=== PATIENT | male | born 1960 | race Caucasian/White ===

== ENCOUNTER 2021-08-25 03:41 | Inpatient (IN) ==
--- NOTE | 2021-08-25 03:56 | DR.SOBA ---
HPI Time Seen Time Seen by Provider: 08/25/21 03:51 HPI Comment HPI Comment: PATIENT IS 61YR OLD MALE WITH HISTORY OF CHRONIC BACK AND NECK PAIN IN ER VIA EMS WITH FEVER, COUGH, CONGESTION AND INCREASING SOB TIMES 4 DAYS. PATIENT IS HAVING PRODUCTIVE COUGH WITH YELLOW SPUTUM. HE IS HAVING SHARP 9/10 PAIN BELOW RIGHT BREAST. HE IS ON CHRONIC PAIN MANAGEMENT FOR CHRONIC LOWER BACK AND NECK. TAKES OXYCONTIN. PATIENT IS ON NO OTHER MEDICATIONS. BP IS ELEVATED IN ER AND PATIENT HAVE SWELLING TO HIS LOWER EXTREMITIS. Complaints Chief Complaint Doctors Comments: INCREASING SOB, COUGH CONGESTION AND LOWGRADE FEVER AND RIGHT SIDE CHEST PAIN BELOW RT BREAST TIMES 4 DAYS. COVID-19 Coronavirus risk:travel/contact w/high risk person: No Has patient experienced Coronavirus symptoms: No Reviewed Nurses Notes Reviewed: Yes Source History Provided: Patient Mode of Arrival Mode of Arrival: Wheelchair Duration Duration: Days Context Onset:: At Rest PE Risk Factors:: Immobilization History of:: COPD Prehospital Care:: O2 Modifying Factors Worsens:: Exertion Improves:: Rest Associated Signs and Symptoms Associated Signs and Symptoms: Fever, Wheeze, Cough, Nasal Congestion and Leg Swelling If Chest Pain Quality: Sharp Location: Right Lower Chest If Cough Cough: Productive and Yellow Other History Other History: CHRONIC LOWER BACK AND NECK PAIN. ROS Review of Systems Constitutional: See HPI, Fever, Weakness and Fatigue Eyes: No Symptoms Reported and See HPI; negative Blurred Vision and Diplopia ENTM: No Symptoms Reported, See HPI, Nose Discharge and Nose Congestion Respiratoy: No Symptoms Reported, See HPI, Productive Cough, Short of Breath and Wheezing Cardiovascular: See HPI, Chest Pain, Edema and Palpitations Gastrointestinal/Abdominal: No Symptoms Reported, See HPI and Nausea; negative Abdominal Pain and Diarrhea Genitourinary: No Symptoms Reported and See HPI Neurological: No Symptoms Reported, See HPI, Headache and Weakness Musculoskeletal: No Symptoms Reported, See HPI and Back Pain (LOWER BACK PAIN, CHRONIC.) Integumentary: No Symptoms Reported, See HPI and Other (LOWER EXTREMITY EDEMA.) Hematologic/Lymphatic: No Symptoms Reported, See HPI and Easy Bruising Endocrine: No Symptoms Reported, See HPI and Increased Thirst; negative Increased Urine Psychiatric: No Symptoms Reported and See HPI All Other Systems: Reviewed and Negative PE Vital Signs Vitals: Temperature 99.1 F Pulse Rate 98 Respiratory Rate 19 Blood Pressure 180/86 O2 Sat by Pulse Oximetry 89 General Limitations: No Limitations General Appearance: Alert and In Distress Head Head Exam: Normal Inspection and Atraumatic Eyes Eye exam: Normal Appearance and PERRL; negative Scleral Icterus and Conjunctival Injection ENT ENT Exam: Normal Exam; negative Normal Oropharynx, Normal External Ear Exam and TM's Normal Bilaterally Neck Neck Exam: Normal Inspection and Trachea Midline; negative Tenderness Chest Chest Inspection: Normal Inspection, Symmetric Chest Wall Rise and Tenderness Respiratory Respiratory Exam: Normal Lung Sounds Bilat, Accessory Muscle Use and Respiratory Distress; negative Chest Wall Tenderness (RT CHEST WALL TENDERNESS UNDER RT BREAST.) Respiratory Exam: Bilateral: Clear to Auscultation Cardiovascular Cardiovascular Exam: Regular Rate, Normal Rhythm, Normal Heart Sounds and +S3; negative Systolic Murmur and Diastolic Murmur Abdominal Exam Abdominal Exam: Normal Inspection, Normal Bowel Sounds and Soft; negative Tenderness Extremities Extremities Exam: Normal Inspection and Edema (BILATERAL EDEMA 2+) Back Back Exam: Paraspinal Tenderness Neurologic Neurological Exam: Alert and Oriented X3; negative Motor Sensory Deficit Psychiatric Psychiatric Exam: Normal Affect and Normal Mood Skin Skin Exam: Warm, Dry, Intact and Normal Color MDM Differential Diagnosis Differential Diagnosis: Bronchitis, CHF, COPD, Dysrhythmia, Hyponatremia, Mycardial Infarction, Pneumonia, Pneumothorax, Respiratory Insufficiency, Sinusitis and URI Differential Diagnosis Comment:: HYPERTENSION COURSE Treatment Treatment: SEE ORDERS DONE WHILS PATIENT WAS IN ER. LABS, EKG AND ABG AND XRAY REPORTS DISCUSSED WITH PATIENT. PATIENT GIVEN NEB TREATMENT, SOLUMEDROL IV AND IV LASIX WHILE PATIENT WAS IN ER. PATIENT WILL BE ADMITTED TO HOSPITAL. Reevaluation 1st: Improved (SOB IMPROVING.) Consultation Consultation Comments: DISCUSSED PATIENT WITH DR. GERMAN. SHE WILL ADMIT PATIENT. Education/Counseling Education/Counseling: Patient Educated On: Diagnosis ROR Labs Reviewed Laboratory Results Reviewed?: Yes Result Diagrams: 08/25/21 04:00 08/25/21 04:00 Laboratory: WBC 17.4 X10^3/uL (3.6-10.0) H 08/25/21 04:00 RBC 5.52 X10^6/uL (4.7-6.0) 08/25/21 04:00 Hgb 16.2 g/dL (13.5-18.0) 08/25/21 04:00 Hct 48.0 % (42.0-54.0) 08/25/21 04:00 MCV 86.9 fL (80.0-100.0) 08/25/21 04:00 MCH 29.3 pg (27.0-34.0) 08/25/21 04:00 MCHC 33.8 g/dL (33.0-35.0) 08/25/21 04:00 RDW 14.3 % (11.6-16.5) 08/25/21 04:00 Plt Count 295 X10^3/uL (150.0-450.0) 08/25/21 04:00 MPV 8.3 fL (7.4-11.0) 08/25/21 04:00 Neut % (Auto) 81.8 % (42.0-75.0) H 08/25/21 04:00 Lymph % (Auto) 7.5 % (21.0-51.0) L 08/25/21 04:00 [place] % (Auto) 10.4 % (0.0-13.0) 08/25/21 04:00 Eos % (Auto) 0.0 % (0.9-2.9) L 08/25/21 04:00 Baso % (Auto) 0.3 % (0.2-1.0) 08/25/21 04:00 Neut # (Auto) 14.3 x10^3/uL (2.2-4.8) H 08/25/21 04:00 Lymph # (Auto) 1.3 X10^3/uL (1.3-2.9) 08/25/21 04:00 [place] # (Auto) 1.8 x10^3/uL (0.3-0.8) H 08/25/21 04:00 Eos # (Auto) 0.0 x10^3/uL (0.0-0.2) 08/25/21 04:00 Baso # (Auto) 0.1 X10^3/uL (0.0-0.1) 08/25/21 04:00 Absolute Nucleated RBC 0.0 /100WBC 08/25/21 04:00 Sample Site Rrad 08/25/21 04:15 ABG pH 7.410 (7.35-7.45) 08/25/21 04:15 ABG pCO2 41.0 mmHg (35.0-45.0) 08/25/21 04:15 ABG pO2 46.0 mmHg (80.0-100.0) L* 08/25/21 04:15 ABG HCO3 26.0 mmol/L (22-26) 08/25/21 04:15 ABG O2 Saturation 82.0 % (90-100) L* 08/25/21 04:15 ABG Base Excess 1.2 mmol/L (-2.0-2.0) 08/25/21 04:15 Jignesh Test Pos 08/25/21 04:15 A-a Gradient 52.0 mmHg 08/25/21 04:15 FiO2 21.0 08/25/21 04:15 Blood Gas Comments Arnold abg well-mtf 08/25/21 04:15 Sodium 140 mmol/L (136-145) 08/25/21 04:00 Corrected Sodium 140 mmol/L (136-145) 08/25/21 04:00 Potassium 3.5 mmol/L (3.5-5.1) 08/25/21 04:00 Chloride 105 mmol/L (98-107) 08/25/21 04:00 Carbon Dioxide 26.2 mmol/L (21-32) 08/25/21 04:00 BUN 19 mg/dL (7-18) H 08/25/21 04:00 Creatinine 1.43 mg/dL (0.70-1.30) H 08/25/21 04:00 Est GFR (MDRD) Af Amer > 60 (>60) 08/25/21 04:00 Est GFR (MDRD) Non-Af 53 (>60) L 08/25/21 04:00 Glucose 113 mg/dL (65-99) H 08/25/21 04:00 Calcium 8.9 mg/dL (8.5-10.1) 08/25/21 04:00 Corrected Calcium 9.6 mg/dL (8.5-10.1) 08/25/21 04:00 Total Bilirubin 1.00 mg/dL (0.2-1.0) 08/25/21 04:00 AST 11 Units/L (15-37) L 08/25/21 04:00 ALT 19 Units/L (12-78) 08/25/21 04:00 Alkaline Phosphatase 90 Units/L (46-116) 08/25/21 04:00 Creatine Kinase 41 Units/L (39-308) 08/25/21 04:00 CK-MB (CK-2) < 1.0 ng/mL (0-4.0) 08/25/21 04:00 CK/CKMB % Calc 2.4 % (<4) 08/25/21 04:00 Troponin I High Sens 13.0 ng/L (4.0-60.0) 08/25/21 04:00 B-Natriuretic Peptide 136 pg/mL (0-79) H 08/25/21 04:00 Total Protein 8.0 g/dL (6.4-8.2) 08/25/21 04:00 Albumin 3.1 g/dL (3.4-5.0) L 08/25/21 04:00 Globulin 4.9 g/dL (2.5-4.5) H 08/25/21 04:00 Albumin/Globulin Ratio 0.6 Ratio (1.1-2.1) L 08/25/21 04:00 SARS-CoV-2 (PCR) Negative (NEGATIVE) 08/25/21 04:04 Influenza Type A (PCR) Negative (NEGATIVE) 08/25/21 04:04 Influenza Type B (PCR) Negative (NEGATIVE) 08/25/21 04:04 RSV (PCR) Negative (NEGATIVE) 08/25/21 04:04 XRAY XRAY Interpreted by: Radiologist (REPORT NOTED.) and Self EKG Lancing: Normal Rhythm: ST Block: None Hypertrophy: None ST: Nonsp Opioid Opioid Risk Tool Age (Ponce box if 16-45): No Total: 0 Total Score Risk Category: Low Risk Copyright: [facility] predicting aberrant behaviors Diagnosis Discharge Problem: Acute respiratory distress, COPD with acute exacerbation, Hypoxia, Bronchitis, Chronic neck pain CHF (congestive heart failure) Qualifiers: Heart failure type: combined systolic and diastolic Heart failure chronicity: acute on chronic Qualified Code(s): I50.43 - Acute on chronic combined systolic (congestive) and diastolic (congestive) heart failure Chronic low back pain Qualifiers: Back pain laterality: unspecified Sciatica presence: with sciatica Sciatica laterality: bilateral sciatica Qualified Code(s): M54.41 - Lumbago with sciatica, right side Instructions Forms: Precautions for COVID19 [facility] Social Distancing
[2021-08-25 03:59] VITALS: BMI 36.3
--- NOTE | 2021-08-25 04:11 | RAD ---
PROCEDURE: Chest X-ray 1 View .HISTORY: Dyspnea and chest pain.TECHNIQUE: AP view .COMPARISON: None .TECHNICAL QUALITY: Satisfactory .FINDINGS:Normal size heart .Mediastinum and hilar regions show no masses or lymphadenopathy .Normal central vascularity .Some atelectasis lung bases. No definite consolidation, pleural fluid, or masses.No acute bony abnormality .IMPRESSION:1. Bibasilar atelectasis.2. No other acute change identified.Electronically signed by: Harsh Reddy (Aug 25, 2021 04:09:55)
[2021-08-25 04:15] LABS: BASOPHILS # (AUTO) 0.1 X10^3/uL (0.0-0.1); BASOPHILS % (AUTO) 0.3 % (0.2-1.0); HEMOGLOBIN 16.2 g/dL (13.5-18.0); LYMPHOCYTES # (AUTO) 1.3 X10^3/uL (1.3-2.9); LYMPHOCYTES % (AUTO) 7.5 % (21.0-51.0); MEAN CORPUSCULAR HEMOGLOBIN 29.3 pg (27.0-34.0); MEAN CORPUSCULAR HGB CONC 33.8 g/dL (33.0-35.0); MEAN CORPUSCULAR VOLUME 86.9 fL (80.0-100.0); MEAN PLATELET VOLUME 8.3 fL (7.4-11.0); MONOCYTES # (AUTO) 1.8 x10^3/uL (0.3-0.8); MONOCYTES % (AUTO) 10.4 % (0.0-13.0); NEUTROPHILS # (AUTO) 14.3 x10^3/uL (2.2-4.8); NEUTROPHILS % (AUTO) 81.8 % (42.0-75.0); RED BLOOD COUNT 5.52 X10^6/uL (4.7-6.0); RED CELL DISTRIBUTION WIDTH 14.3 % (11.6-16.5); WHITE BLOOD COUNT 17.4 X10^3/uL (3.6-10.0)
[2021-08-25 04:17] LABS: ABG BASE EXCESS 1.2 mmol/L (-2.0-2.0)
[2021-08-25 04:18] LABS: ABG ALLEN TEST POS
[2021-08-25] MEDS ORDERED: SOLU-Medrol 125 MG VIAL IVP ONE (04:26)
[2021-08-25] MEDS ORDERED: XOPENEX 1.25 MG/3 ML NEBULE NEB ONE ×2 (04:26→05:19)
[2021-08-25 04:36] LABS: ALANINE AMINOTRANSFERASE 19 Units/L (12-78); ALBUMIN 3.1 g/dL (3.4-5.0); ALKALINE PHOSPHATASE 90 Units/L (46-116); ASPARTATE AMINO TRANSFERASE 11 Units/L (15-37); BLOOD UREA NITROGEN 19 mg/dL (7-18); CALCIUM 8.9 mg/dL (8.5-10.1); CARBON DIOXIDE 26.2 mmol/L (21-32); CHLORIDE 105 mmol/L (98-107); CKMB % 2.4 % (<4); COR CA(FOR HYPOALB) 9.6 mg/dL (8.5-10.1); COR NA(FOR HYPERGLY) 140 mmol/L (136-145); CREATINE KINASE 41 Units/L (39-308); CREATINE KINASE MB < 1.0 ng/mL (0-4.0); CREATININE 1.43 mg/dL (0.70-1.30); SODIUM 140 mmol/L (136-145); eGFR NON BLACK RACES 53 (>60)
[2021-08-25] MEDS ORDERED: SOLU-Medrol 125 MG VIAL ONE (05:13)
[2021-08-25] MEDS ORDERED: FORTAZ or TAZICEF VIAL INJ 1 G in NS 100 ML IV 100 ML IV ONE (05:35)
[2021-08-25] MEDS ORDERED: LASIX IVP ONE ×2 (05:51→06:13)
[2021-08-25] MEDS ORDERED: FORTAZ or TAZICEF VIAL INJ ONE (06:13)
[2021-08-25] MEDS ORDERED: NS 100 ML IV 100 ML ONE (06:18)
[2021-08-25 06:59] LABS: BILIRUBIN,URINE NEGATIVE (NEGATIVE); BLOOD/HEMOGLOBIN,URINE 1+ (NEGATIVE); GLUCOSE, URINE NEGATIVE (NEGATIVE); KETONES,URINE NEGATIVE (NEGATIVE); LEUKOCYTE ESTERASE ,URINE NEGATIVE (NEGATIVE); NITRITES,URINE NEGATIVE (NEGATIVE); PROTEIN,URINE 2+ (NEGATIVE); UROBILINOGEN,URINE NORMAL (NORMAL)
[2021-08-25 07:12] LABS: APPEARANCE,URINE SLIGHTLY HAZY (CLEAR); COLOR,URINE YELLOW (YELLOW)
[2021-08-25 07:13] LABS: BACTERIA,URINE TRACE /HPF (NEGATIVE); RBC,URINE 0-2 /HPF (0-3); SQUAMOUS EPITHELIAL CELL,UR FEW /HPF (NEGATIVE)
[2021-08-25] MEDS ORDERED: NS 1/2 500 ML IV 500 ML IV SCH (07:30)
[2021-08-25] MEDS ORDERED: NS 1/2 1,000 ML IV 1,000 ML IV SCH (07:30)
[2021-08-25] MEDS: FORTAZ or TAZICEF VIAL INJ 1 G in NS 100 ML IV 100 ML IV SCH ×3 (07:32→21:29)
[2021-08-25] MEDS ORDERED: SALINE 3% 15 ML NEB TX NEB ONE (08:06)
[2021-08-25] MEDS ORDERED: SALINE 3% 15 ML NEB TX ONE (08:11)
[2021-08-25] MEDS: XOPENEX 1.25 MG/3 ML NEBULE NEB SCH ×4 (08:35→21:40)
[2021-08-25] MEDS: NICOTINE PATCH TD SCH ×2 (08:50→09:09)
[2021-08-25] MEDS: ZITHROMAX INJ 500 MG VIAL 500 MG in D5W 250 ML IV 250 ML IV SCH (08:50)
[2021-08-25] MEDS: ROBITUSSIN DM PO SCH ×4 (08:51→21:29)
[2021-08-25] MEDS: VSL#3 PO SCH (08:51)
[2021-08-25] MEDS ORDERED: NS 1/2 1,000 ML IV 1,000 ML IV ONE (08:52)
[2021-08-25] MEDS: NS 1/2 1,000 ML IV 1,000 ML IV SCH ×2 (08:54→21:28)
[2021-08-25] MEDS: PATIENT'S HOME MEDICATION PO SCH ×3 (08:57→21:29)
--- NOTE | 2021-08-25 12:01 | DR.H&P ---
H&P History & Physical for Day of: H&P Date: 08/25/21 Chief Complaint Chief Complaint: cough, SOB Allergies Allergies Allergy/AdvReac Type Severity Reaction Status Date / Time morphine Allergy Verified 08/25/21 03:59 History of Present Illness History of Present Illness: Mr Corado is a 61y/o male with a PMH of chronic neck and back pain, tobacco user presented with worsening cough and dyspnea. He reports being sick for the past few days with productive cough with yellow/blood tinged sputum. He does not use O2 at home. Denies CAD or CHF. No hx of DM or HTN. Denied leg edema or recent wt gain. His only medication is pain medicine. In the ER, CXR showed bibasilar atelectasis. He is currently on 3L NC. He was admitted for COPD exacerbation and pneumonia. He also had elevated BNP, given one dose of lasix. Labs/imaging reviewed Plan: Wean O2 as tolerated to keep sats > 92%. Continue IV antibiotics and solumedrol. Monitor I/Os, daily weights. Order echo to evaluate LV function. Continue nebs and IS. Trend cardiac enzymes. Monitor AM labs/imaging. Past Surgical History Surgical History: Ortho Surgery Family History Family Medical History: Cancer, Heart Failure and Hypertension Social History Does patient currently use any type of tobacco product: Yes Have you used tobacco products in the last 12 months: Yes Type of Tobacco Use: Cigarettes How many years tobacco product used: 40 Does any household member use tobacco: No Alcohol Use: None Drug Use: None Prescription drug monitoring program results: PDMP reviewed and no concerns identified Medications Home Medications: morphine Allergy (Verified 08/25/21 03:59) CONTINUE taking the following medications oxycodone myristate [Xtampza ER] 36 mg PO BID 08/25/21 [History] Labs Result Diagrams: 08/25/21 04:00 08/25/21 04:00 Labs: Laboratory WBC 17.4 X10^3/uL (3.6-10.0) H 08/25/21 04:00 RBC 5.52 X10^6/uL (4.7-6.0) 08/25/21 04:00 Hgb 16.2 g/dL (13.5-18.0) 08/25/21 04:00 Hct 48.0 % (42.0-54.0) 08/25/21 04:00 MCV 86.9 fL (80.0-100.0) 08/25/21 04:00 MCH 29.3 pg (27.0-34.0) 08/25/21 04:00 MCHC 33.8 g/dL (33.0-35.0) 08/25/21 04:00 RDW 14.3 % (11.6-16.5) 08/25/21 04:00 Plt Count 295 X10^3/uL (150.0-450.0) 08/25/21 04:00 MPV 8.3 fL (7.4-11.0) 08/25/21 04:00 Neut % (Auto) 81.8 % (42.0-75.0) H 08/25/21 04:00 Lymph % (Auto) 7.5 % (21.0-51.0) L 08/25/21 04:00 [place] % (Auto) 10.4 % (0.0-13.0) 08/25/21 04:00 Eos % (Auto) 0.0 % (0.9-2.9) L 08/25/21 04:00 Baso % (Auto) 0.3 % (0.2-1.0) 08/25/21 04:00 Neut # (Auto) 14.3 x10^3/uL (2.2-4.8) H 08/25/21 04:00 Lymph # (Auto) 1.3 X10^3/uL (1.3-2.9) 08/25/21 04:00 [place] # (Auto) 1.8 x10^3/uL (0.3-0.8) H 08/25/21 04:00 Eos # (Auto) 0.0 x10^3/uL (0.0-0.2) 08/25/21 04:00 Baso # (Auto) 0.1 X10^3/uL (0.0-0.1) 08/25/21 04:00 Absolute Nucleated RBC 0.0 /100WBC 08/25/21 04:00 Sample Site Rrad 08/25/21 04:15 ABG pH 7.410 (7.35-7.45) 08/25/21 04:15 ABG pCO2 41.0 mmHg (35.0-45.0) 08/25/21 04:15 ABG pO2 46.0 mmHg (80.0-100.0) L* 08/25/21 04:15 ABG HCO3 26.0 mmol/L (22-26) 08/25/21 04:15 ABG O2 Saturation 82.0 % (90-100) L* 08/25/21 04:15 ABG Base Excess 1.2 mmol/L (-2.0-2.0) 08/25/21 04:15 Jignesh Test Pos 08/25/21 04:15 A-a Gradient 52.0 mmHg 08/25/21 04:15 FiO2 21.0 08/25/21 04:15 Blood Gas Comments Arnold abg well-mtf 08/25/21 04:15 Sodium 140 mmol/L (136-145) 08/25/21 04:00 Corrected Sodium 140 mmol/L (136-145) 08/25/21 04:00 Potassium 3.5 mmol/L (3.5-5.1) 08/25/21 04:00 Chloride 105 mmol/L (98-107) 08/25/21 04:00 Carbon Dioxide 26.2 mmol/L (21-32) 08/25/21 04:00 BUN 19 mg/dL (7-18) H 08/25/21 04:00 Creatinine 1.43 mg/dL (0.70-1.30) H 08/25/21 04:00 Est GFR (MDRD) Af Amer > 60 (>60) 08/25/21 04:00 Est GFR (MDRD) Non-Af 53 (>60) L 08/25/21 04:00 Glucose 113 mg/dL (65-99) H 08/25/21 04:00 Calcium 8.9 mg/dL (8.5-10.1) 08/25/21 04:00 Corrected Calcium 9.6 mg/dL (8.5-10.1) 08/25/21 04:00 Total Bilirubin 1.00 mg/dL (0.2-1.0) 08/25/21 04:00 AST 11 Units/L (15-37) L 08/25/21 04:00 ALT 19 Units/L (12-78) 08/25/21 04:00 Alkaline Phosphatase 90 Units/L (46-116) 08/25/21 04:00 Creatine Kinase 41 Units/L (39-308) 08/25/21 04:00 CK-MB (CK-2) < 1.0 ng/mL (0-4.0) 08/25/21 04:00 CK/CKMB % Calc 2.4 % (<4) 08/25/21 04:00 Troponin I High Sens 13.0 ng/L (4.0-60.0) 08/25/21 04:00 B-Natriuretic Peptide 136 pg/mL (0-79) H 08/25/21 04:00 Total Protein 8.0 g/dL (6.4-8.2) 08/25/21 04:00 Albumin 3.1 g/dL (3.4-5.0) L 08/25/21 04:00 Globulin 4.9 g/dL (2.5-4.5) H 08/25/21 04:00 Albumin/Globulin Ratio 0.6 Ratio (1.1-2.1) L 08/25/21 04:00 Specimen Type Clean catch urine 08/25/21 06:47 Urine Color Yellow (YELLOW) 08/25/21 06:47 Urine Appearance Slightly hazy (CLEAR) 08/25/21 06:47 Urine pH 5.0 (5.0 - 8.0) 08/25/21 06:47 Ur Specific [place] 1.020 (1.000-1.030) 08/25/21 06:47 Urine Protein 2+ (NEGATIVE) 08/25/21 06:47 Urine Glucose (UA) Negative (NEGATIVE) 08/25/21 06:47 Urine Ketones Negative (NEGATIVE) 08/25/21 06:47 Urine Blood 1+ (NEGATIVE) 08/25/21 06:47 Urine Nitrite Negative (NEGATIVE) 08/25/21 06:47 Urine Bilirubin Negative (NEGATIVE) 08/25/21 06:47 Urine Urobilinogen Normal (NORMAL) 08/25/21 06:47 Ur Leukocyte Esterase Negative (NEGATIVE) 08/25/21 06:47 Urine RBC 0-2 /HPF (0-3) 08/25/21 06:47 Urine WBC 0-2 /HPF (0-5) 08/25/21 06:47 Ur Squamous Epith Cells Few /HPF (NEGATIVE) 08/25/21 06:47 Urine Bacteria Trace /HPF (NEGATIVE) 08/25/21 06:47 Urine Mucus Moderate /HPF (NEGATIVE) 08/25/21 06:47 Ur Culture Indicated? No/not indicated 08/25/21 06:47 SARS-CoV-2 (PCR) Negative (NEGATIVE) 08/25/21 04:04 Influenza Type A (PCR) Negative (NEGATIVE) 08/25/21 04:04 Influenza Type B (PCR) Negative (NEGATIVE) 08/25/21 04:04 RSV (PCR) Negative (NEGATIVE) 08/25/21 04:04 Review of Systems Constitutional: Malaise Eyes: No Symptoms Reported ENT: No Symptoms Reported Respiratory: Cough, Shortness of Breath, SOB with Excertion, Sputum and Wheezing Cardiovascular: No Symptoms Reported Gastrointestinal: No Symptoms Reported Genitourinary: No Symptoms Reported Musculoskeletal: Back Pain Skin: No Symptoms Reported Neurological: No Symptoms Reported Physical Exam Vital Signs: Temperature 97.9 F Pulse Rate [Left Radial] 109 Pulse Rate 109 Respiratory Rate 21 Blood Pressure [Right Arm] 114/70 Blood Pressure 154/75 O2 Sat by Pulse Oximetry 93 Oriented: Normal Eyes: Normal Ear: Normal Nose: Normal Throat: Normal Respiratory: Diminished Throughout, RLL Rales and LLL Rales Cardiovascular: Normal and Edema (trace LE edema ) Auscultation: Bowel Sounds: Normal Palpation: Normal Tenderness: Normal Skin: Normal Musculoskeletal: Normal Psychiatric: Normal Mood Description: Calm Affect: Normal Speech Pattern: Clear and Appropriate Assessment/Plan (1) Acute respiratory distress: Status: Acute (2) COPD with acute exacerbation: Status: Acute (3) CHF (congestive heart failure): Qualifiers: Heart failure chronicity: acute on chronic Heart failure type: combined systolic and diastolic Qualified Code(s): I50.43 - Acute on chronic combined systolic (congestive) and diastolic (congestive) heart failure Status: Acute (4) Bronchitis: Status: Acute (5) Chronic low back pain: Qualifiers: Back pain laterality: unspecified Sciatica laterality: bilateral sciatica Sciatica presence: with sciatica Qualified Code(s): M54.41 - Lumbago with sciatica, right side; M54.42 - Lumbago with sciatica, left side; G89.29 - Other chronic pain Status: Acute (6) Chronic neck pain: Status: Acute Review H&P Reviewed: Yes Patient was examined?: Yes
[2021-08-25 12:43] LABS: CKMB % 1.7 % (<4); CREATINE KINASE 58 Units/L (39-308); CREATINE KINASE MB < 1.0 ng/mL (0-4.0)
[2021-08-25] MEDS: SOLU-Medrol 40 MG VIAL IVP SCH (16:23)
[2021-08-25 20:23] LABS: CKMB % 1.2 % (<4)
[2021-08-26] MEDS: SOLU-Medrol 40 MG VIAL IVP SCH ×2 (03:52→16:28)
[2021-08-26 04:49] LABS: BASOPHILS % (AUTO) 0.1 % (0.2-1.0); HEMATOCRIT 42.3 % (42.0-54.0); HEMOGLOBIN 14.3 g/dL (13.5-18.0); LYMPHOCYTES # (AUTO) 1.2 X10^3/uL (1.3-2.9); LYMPHOCYTES % (AUTO) 6.1 % (21.0-51.0); MEAN CORPUSCULAR HEMOGLOBIN 29.1 pg (27.0-34.0); MEAN CORPUSCULAR HGB CONC 33.9 g/dL (33.0-35.0); MEAN CORPUSCULAR VOLUME 85.9 fL (80.0-100.0); MEAN PLATELET VOLUME 8.3 fL (7.4-11.0); MONOCYTES # (AUTO) 1.2 x10^3/uL (0.3-0.8); MONOCYTES % (AUTO) 6.1 % (0.0-13.0); NEUTROPHILS # (AUTO) 16.9 x10^3/uL (2.2-4.8); NEUTROPHILS % (AUTO) 87.7 % (42.0-75.0); RED BLOOD COUNT 4.92 X10^6/uL (4.7-6.0); RED CELL DISTRIBUTION WIDTH 14.1 % (11.6-16.5); WHITE BLOOD COUNT 19.3 X10^3/uL (3.6-10.0)
[2021-08-26 04:57] LABS: ALANINE AMINOTRANSFERASE 33 Units/L (12-78); ALBUMIN 2.7 g/dL (3.4-5.0); ALKALINE PHOSPHATASE 82 Units/L (46-116); ASPARTATE AMINO TRANSFERASE 26 Units/L (15-37); BLOOD UREA NITROGEN 22 mg/dL (7-18); CALCIUM 8.8 mg/dL (8.5-10.1); CARBON DIOXIDE 28.7 mmol/L (21-32); CHLORIDE 100 mmol/L (98-107); COR CA(FOR HYPOALB) 9.8 mg/dL (8.5-10.1); COR NA(FOR HYPERGLY) 138 mmol/L (136-145); CREATININE 0.98 mg/dL (0.70-1.30); SODIUM 137 mmol/L (136-145); TOTAL PROTEIN 7.3 g/dL (6.4-8.2); eGFR NON BLACK RACES > 60 (>60)
[2021-08-26] MEDS: NS 1/2 1,000 ML IV 1,000 ML IV SCH ×2 (05:00→15:56)
[2021-08-26] MEDS: FORTAZ or TAZICEF VIAL INJ 1 G in NS 100 ML IV 100 ML IV SCH ×3 (05:17→21:03)
[2021-08-26] MEDS: ZITHROMAX INJ 500 MG VIAL 500 MG in D5W 250 ML IV 250 ML IV SCH (05:39)
[2021-08-26] MEDS ORDERED: MICRO K EXTEN CAP 10 MEQ PO PRN (05:43)
[2021-08-26] MEDS ORDERED: K-RIDER 10 MEQ/NS 100 ML 10 MEQ/100 ML BAG IV PRN (05:43)
[2021-08-26] MEDS ORDERED: MAGNESIUM SULFATE 1 GRAM/100 mL PREMIX 1 G/100 ML BAG IV PRN (05:43)
[2021-08-26] MEDS ORDERED: KLOR-CON PO PRN (05:43)
[2021-08-26] MEDS ORDERED: POTASSIUM CHLORIDE LIQ 20 MEQ UDC PO PRN (05:43)
[2021-08-26] MEDS ORDERED: POTASSIUM CHL 60 MEQ/NS 0.45% 500 ML IV PRN (05:43)
[2021-08-26] MEDS ORDERED: POTASSIUM CHL 40 MEQ/NS 0.45% 500 ML IV PRN (05:43)
[2021-08-26] MEDS ORDERED: NS 100 ML IV 100 ML ONE (07:52)
[2021-08-26] MEDS ORDERED: TUSSIONEX PENNKINETIC SUSP PO PRN (08:44)
[2021-08-26] MEDS: ROBITUSSIN DM PO SCH ×4 (08:49→20:53)
[2021-08-26] MEDS: VSL#3 PO SCH (08:49)
[2021-08-26] MEDS: PATIENT'S HOME MEDICATION PO SCH ×2 (08:50→21:03)
[2021-08-26 08:53] LABS: ABG ALLEN TEST POS; ABG BASE EXCESS 2.8 mmol/L (-2.0-2.0); ABG HCO3 25.9 mmol/L (22-26)
[2021-08-26] MEDS: XOPENEX 1.25 MG/3 ML NEBULE NEB SCH ×3 (09:10→20:53)
[2021-08-26] MEDS: NICOTINE PATCH TD SCH (09:12)
[2021-08-26] MEDS ORDERED: LOVENOX INJ 40 MG SYR SC SCH (10:00)
--- NOTE | 2021-08-26 10:10 | CT ---
HISTORYShortness of breath, hypoxia, respiratory distressSTUDYCTA chest with contrast for pulmonary embolusTechnique: Axial post-contrast images with coronal and sagittal reformats. Dose reduction procedures were used with mA/kv adjusted for body size.COMPARISONNoneFINDINGSThe examination is positive for pulmonary thromboembolic disease with incompletely occlusive thrombus identified in the distal right main pulmonary artery, right lower lobe pulmonary artery and segmental branches to the right lower lobe. There is occlusive thrombus identified in the artery to the right middle lobe. Examination of the mediastinum demonstrated no evidence for mediastinal masses, enlarged mediastinal or enlarged hilar adenopathy or significant aortic abnormality. Trace right pleural effusion is present. There is reflux of contrast into the hepatic veins and inferior vena cava suggestive of right heart dysfunction possibly developing right heart strain. No chest wall or axillary abnormality is identified. Those portions of the upper abdominal organs visualized were within normal limits to the limitations of early arterial injection timing. Examination of the lung bagley demonstrated a wedge-shaped area of abnormal parenchymal density peripherally in the right middle lobe in the area served by the embolized right middle lobe segmental artery and suggestive of developing infarct. There is bibasilar subsegmental atelectasis. No definite nodules, masses, peribronchial thickening, or bronchiectasis identified.IMPRESSIONExam positive for acute pulmonary thromboembolic disease both incompletely occlusive and occlusive as described aboveReflux of contrast into the inferior vena cava and hepatic veins suggestive of right heart dysfunction and possibly developing right heart strainWedge-shaped area of abnormal parenchymal density in the right middle lobe distal to an embolized arterial branch and likely a developing infarctBibasilar subsegmental atelectasisElectronically signed by: REBA ORTIZ (Aug 26, 2021 10:09:15)
[2021-08-26] MEDS ORDERED: HEPARIN SODIUM INJ 5000 UNITS IVP ONE ×2 (12:17→18:46)
[2021-08-26] MEDS: HEPARIN SODIUM IN D5W 25,000 UNITS/500 ML BAG IV PRN (12:25)
--- NOTE | 2021-08-26 13:13 | VAS ---
HISTORY: Pulmonary emboli. Evaluate for DVT.Study: Bilateral lower extremity Doppler venous ultrasound.TECHNIQUE: Multiple tenorio scale and color flow Doppler images of the deep venous system were obtained of the [right and left] lower extremity.FINDINGS:The deep venous system of the [right and left lower extremities were] evaluated from the level of the common femoral veins through the popliteal veins, bilaterally.There is an occlusive DVT seen in the left popliteal vein on this examination. No other DVT is seen bilaterally in the deep veins of the bilateral lower extremities.IMPRESSION:1. Positive examination for DVT, as above.Electronically signed by: VICKI MCQUEEN III (Aug 26, 2021 13:12:19)
[2021-08-26 18:48] LABS: CKMB % 0.8 % (<4); CREATINE KINASE MB 1.7 ng/mL (0-4.0)
[2021-08-26] MEDS: K-DUR TAB 20 MEQ PO PRN (20:54)
[2021-08-27] MEDS ORDERED: HEPARIN SODIUM INJ 5000 UNITS IVP ONE ×3 (02:03→15:24)
[2021-08-27] MEDS ORDERED: HEPARIN SODIUM INJ 5000 UNITS ONE ×3 (02:08→15:24)
[2021-08-27] MEDS: SOLU-Medrol 40 MG VIAL IVP SCH ×2 (03:30→15:25)
[2021-08-27] MEDS: HEPARIN SODIUM IN D5W 25,000 UNITS/500 ML BAG IV PRN ×2 (04:43→16:40)
[2021-08-27] MEDS: FORTAZ or TAZICEF VIAL INJ 1 G in NS 100 ML IV 100 ML IV SCH ×3 (05:00→21:05)
[2021-08-27 05:27] LABS: BASOPHILS # (AUTO) 0.1 X10^3/uL (0.0-0.1); BASOPHILS % (AUTO) 0.5 % (0.2-1.0); HEMOGLOBIN 13.9 g/dL (13.5-18.0); LYMPHOCYTES # (AUTO) 1.6 X10^3/uL (1.3-2.9); LYMPHOCYTES % (AUTO) 10.1 % (21.0-51.0); MEAN CORPUSCULAR HEMOGLOBIN 29.4 pg (27.0-34.0); MEAN CORPUSCULAR HGB CONC 33.9 g/dL (33.0-35.0); MEAN CORPUSCULAR VOLUME 86.6 fL (80.0-100.0); MEAN PLATELET VOLUME 9.1 fL (7.4-11.0); MONOCYTES # (AUTO) 0.9 x10^3/uL (0.3-0.8); MONOCYTES % (AUTO) 5.7 % (0.0-13.0); NEUTROPHILS # (AUTO) 13.3 x10^3/uL (2.2-4.8); NEUTROPHILS % (AUTO) 83.7 % (42.0-75.0); RED BLOOD COUNT 4.73 X10^6/uL (4.7-6.0); RED CELL DISTRIBUTION WIDTH 13.9 % (11.6-16.5); WHITE BLOOD COUNT 15.9 X10^3/uL (3.6-10.0)
[2021-08-27 05:36] LABS: ERYTHROCYTE SEDIMENTATION RATE 54 MM/HOUR (0-15)
[2021-08-27 05:42] LABS: ALANINE AMINOTRANSFERASE 70 Units/L (12-78); ALBUMIN 2.4 g/dL (3.4-5.0); ALKALINE PHOSPHATASE 81 Units/L (46-116); ASPARTATE AMINO TRANSFERASE 53 Units/L (15-37); BLOOD UREA NITROGEN 21 mg/dL (7-18); CALCIUM 8.6 mg/dL (8.5-10.1); CARBON DIOXIDE 30.7 mmol/L (21-32); CHLORIDE 100 mmol/L (98-107); CHOL/HDL RATIO 3.8 (0.0-5.0); CHOLESTEROL 128 mg/dL (0-200); COR CA(FOR HYPOALB) 9.9 mg/dL (8.5-10.1); COR NA(FOR HYPERGLY) 138 mmol/L (136-145); CREATININE 0.97 mg/dL (0.70-1.30); HDL CHOLESTEROL 34 mg/dL (40-60); LACTATE DEHYDROGENASE 211 Units/L (85-227); SODIUM 137 mmol/L (136-145); TOTAL PROTEIN 6.7 g/dL (6.4-8.2); TRIGLYCERIDES 64 mg/dL (0-150); eGFR NON BLACK RACES > 60 (>60)
[2021-08-27] MEDS: NS 1/2 1,000 ML IV 1,000 ML IV SCH ×3 (05:44→21:05)
[2021-08-27] MEDS: ZITHROMAX INJ 500 MG VIAL 500 MG in D5W 250 ML IV 250 ML IV SCH (05:45)
[2021-08-27] MEDS ORDERED: POTASSIUM CHL 60 MEQ/NS 0.45% 500 ML IV PRN (06:07)
[2021-08-27] MEDS ORDERED: MAGNESIUM SULFATE 1 GRAM/100 mL PREMIX 1 G/100 ML BAG IV PRN (06:07)
[2021-08-27] MEDS ORDERED: POTASSIUM CHLORIDE LIQ 20 MEQ UDC PO PRN (06:07)
[2021-08-27] MEDS ORDERED: KLOR-CON PO PRN (06:07)
[2021-08-27] MEDS ORDERED: POTASSIUM CHL 40 MEQ/NS 0.45% 500 ML IV PRN (06:07)
[2021-08-27] MEDS ORDERED: K-DUR TAB 20 MEQ PO PRN (06:07)
[2021-08-27] MEDS ORDERED: K-RIDER 10 MEQ/NS 100 ML 10 MEQ/100 ML BAG IV PRN (06:07)
[2021-08-27] MEDS ORDERED: MICRO K EXTEN CAP 10 MEQ PO PRN (06:07)
[2021-08-27] MEDS ORDERED: PROTONIX INJ 40 MG VIAL ONE (08:30)
[2021-08-27] MEDS: NICOTINE PATCH TD SCH (08:31)
[2021-08-27] MEDS: ROBITUSSIN DM PO SCH ×4 (08:32→20:41)
[2021-08-27] MEDS: VSL#3 PO SCH (08:32)
[2021-08-27] MEDS: PROTONIX INJ 40 MG VIAL IVP SCH (08:32)
[2021-08-27] MEDS: PATIENT'S HOME MEDICATION PO SCH ×2 (08:39→20:41)
[2021-08-27] MEDS: XOPENEX 1.25 MG/3 ML NEBULE NEB SCH ×4 (09:31→21:15)
[2021-08-27] MEDS: XANAX PO PRN (18:26)
[2021-08-28] MEDS: HEPARIN SODIUM IN D5W 25,000 UNITS/500 ML BAG IV PRN (03:06)
[2021-08-28] MEDS: SOLU-Medrol 40 MG VIAL IVP SCH ×2 (03:58→17:34)
[2021-08-28] MEDS: FORTAZ or TAZICEF VIAL INJ 1 G in NS 100 ML IV 100 ML IV SCH ×3 (05:00→21:09)
[2021-08-28 05:16] LABS: BASOPHILS % (AUTO) 0.3 % (0.2-1.0); HEMATOCRIT 41.6 % (42.0-54.0); HEMOGLOBIN 14.3 g/dL (13.5-18.0); LYMPHOCYTES % (AUTO) 15.7 % (21.0-51.0); MEAN CORPUSCULAR HEMOGLOBIN 29.5 pg (27.0-34.0); MEAN CORPUSCULAR HGB CONC 34.4 g/dL (33.0-35.0); MEAN CORPUSCULAR VOLUME 85.8 fL (80.0-100.0); MEAN PLATELET VOLUME 8.5 fL (7.4-11.0); NEUTROPHILS # (AUTO) 9.9 x10^3/uL (2.2-4.8); RED BLOOD COUNT 4.85 X10^6/uL (4.7-6.0); RED CELL DISTRIBUTION WIDTH 14.2 % (11.6-16.5)
[2021-08-28 05:30] LABS: ALANINE AMINOTRANSFERASE 81 Units/L (12-78); ALBUMIN 2.4 g/dL (3.4-5.0); ALKALINE PHOSPHATASE 75 Units/L (46-116); ASPARTATE AMINO TRANSFERASE 32 Units/L (15-37); BLOOD UREA NITROGEN 16 mg/dL (7-18); CALCIUM 8.4 mg/dL (8.5-10.1); CARBON DIOXIDE 28.2 mmol/L (21-32); CHLORIDE 101 mmol/L (98-107); COR CA(FOR HYPOALB) 9.7 mg/dL (8.5-10.1); COR NA(FOR HYPERGLY) 136 mmol/L (136-145); CREATININE 0.76 mg/dL (0.70-1.30); MAGNESIUM 2.2 mg/dL (1.7-2.9); SODIUM 135 mmol/L (136-145); TOTAL PROTEIN 6.5 g/dL (6.4-8.2); eGFR NON BLACK RACES > 60 (>60)
[2021-08-28] MEDS: ZITHROMAX INJ 500 MG VIAL 500 MG in D5W 250 ML IV 250 ML IV SCH (05:32)
--- NOTE | 2021-08-28 08:07 | RAD ---
HISTORYCOPD, respiratory distressSTUDYChest AP [id number]/2022, CTA chest 08/26/2021FINDINGSHeart size is normal. Margot are normal. Lungs are well inflated. There is abnormal parenchymal density peripherally in the right lung base corresponding to the peripheral right middle lobe infiltrate visible on the recent CTA chest and felt to represent a developing lung infarct distal to the patient pulmonary thromboembolic disease. It is unchanged in appearance from the recent CTA but more prominent when compared with the 08/25/2021 chest x-ray. Remainder of the lung bagley appear clear. No pleural effusion is identified. Bony thorax is unremarkable.IMPRESSIONPeripheral area of infiltrate in the right lung base corresponding to the peripheral right middle lobe infiltrate present on the recent CTA chest and felt to represent developing lung infarct distal to the patient's pulmonary thromboembolic disease.Electronically signed by: REBA ORTIZ (Aug 28, 2021 08:05:13)
[2021-08-28 08:18] LABS: ABG BASE EXCESS 4.2 mmol/L (-2.0-2.0); ABG HCO3 27.3 mmol/L (22-26)
[2021-08-28] MEDS: XOPENEX 1.25 MG/3 ML NEBULE NEB SCH ×4 (08:25→21:15)
[2021-08-28] MEDS: VSL#3 PO SCH (10:00)
[2021-08-28] MEDS: PROTONIX INJ 40 MG VIAL IVP SCH (10:00)
[2021-08-28] MEDS: ELIQUIS PO SCH ×2 (10:00→20:21)
[2021-08-28] MEDS: PATIENT'S HOME MEDICATION PO SCH ×2 (10:01→20:22)
[2021-08-28] MEDS: NS 1/2 1,000 ML IV 1,000 ML IV SCH ×3 (10:01→17:59)
[2021-08-28] MEDS: ROBITUSSIN DM PO SCH (10:01)
[2021-08-28] MEDS: NICOTINE PATCH TD SCH (10:15)
[2021-08-28] MEDS: XANAX PO PRN (10:16)
[2021-08-28] MEDS: K-DUR TAB 20 MEQ PO PRN (10:16)
[2021-08-28] MEDS ORDERED: ROBITUSSIN DM PO PRN (14:05)
[2021-08-28] MEDS ORDERED: NS 1/2 1,000 ML IV 1,000 ML IV ONE (17:58)
[2021-08-29] MEDS: SOLU-Medrol 40 MG VIAL IVP SCH (03:26)
[2021-08-29] MEDS: NS 1/2 1,000 ML IV 1,000 ML IV SCH (03:27)
[2021-08-29 04:10] LABS: BASOPHILS % (AUTO) 0.2 % (0.2-1.0); EOSINOPHILS % (AUTO) 0.1 % (0.9-2.9); HEMATOCRIT 43.2 % (42.0-54.0); HEMOGLOBIN 14.4 g/dL (13.5-18.0); LYMPHOCYTES # (AUTO) 1.9 X10^3/uL (1.3-2.9); LYMPHOCYTES % (AUTO) 13.7 % (21.0-51.0); MEAN CORPUSCULAR HEMOGLOBIN 29.1 pg (27.0-34.0); MEAN CORPUSCULAR HGB CONC 33.3 g/dL (33.0-35.0); MEAN CORPUSCULAR VOLUME 87.1 fL (80.0-100.0); MEAN PLATELET VOLUME 8.3 fL (7.4-11.0); MONOCYTES # (AUTO) 0.8 x10^3/uL (0.3-0.8); MONOCYTES % (AUTO) 6.2 % (0.0-13.0); NEUTROPHILS # (AUTO) 10.8 x10^3/uL (2.2-4.8); NEUTROPHILS % (AUTO) 79.8 % (42.0-75.0); RED BLOOD COUNT 4.96 X10^6/uL (4.7-6.0); RED CELL DISTRIBUTION WIDTH 14.1 % (11.6-16.5); WHITE BLOOD COUNT 13.5 X10^3/uL (3.6-10.0)
[2021-08-29 04:20] LABS: ALANINE AMINOTRANSFERASE 83 Units/L (12-78); ALBUMIN 2.5 g/dL (3.4-5.0); ALKALINE PHOSPHATASE 73 Units/L (46-116); ASPARTATE AMINO TRANSFERASE 28 Units/L (15-37); BLOOD UREA NITROGEN 14 mg/dL (7-18); CALCIUM 8.4 mg/dL (8.5-10.1); CARBON DIOXIDE 26.8 mmol/L (21-32); CHLORIDE 103 mmol/L (98-107); COR CA(FOR HYPOALB) 9.6 mg/dL (8.5-10.1); COR NA(FOR HYPERGLY) 137 mmol/L (136-145); CREATININE 0.82 mg/dL (0.70-1.30); SODIUM 136 mmol/L (136-145); TOTAL PROTEIN 6.4 g/dL (6.4-8.2); eGFR NON BLACK RACES > 60 (>60)
[2021-08-29] MEDS: FORTAZ or TAZICEF VIAL INJ 1 G in NS 100 ML IV 100 ML IV SCH (05:39)
[2021-08-29] MEDS: ZITHROMAX INJ 500 MG VIAL 500 MG in D5W 250 ML IV 250 ML IV SCH (06:54)
[2021-08-29] MEDS: ELIQUIS PO SCH (08:32)
[2021-08-29] MEDS: ZESTRIL TAB 5 MG PO SCH ×2 (08:32→08:34)
[2021-08-29] MEDS: PROTONIX INJ 40 MG VIAL IVP SCH (08:33)
[2021-08-29] MEDS: VSL#3 PO SCH (08:33)
[2021-08-29] MEDS: PATIENT'S HOME MEDICATION PO SCH (08:33)
[2021-08-29] MEDS: NICOTINE PATCH TD SCH (08:33)
[2021-08-29] MEDS: XANAX PO PRN (08:34)
[2021-08-29 08:47] LABS: ABG ALLEN TEST POS; ABG BASE EXCESS 4.7 mmol/L (-2.0-2.0); ABG HCO3 28.2 mmol/L (22-26)
[2021-08-29] MEDS: XOPENEX 1.25 MG/3 ML NEBULE NEB SCH (08:57)
--- NOTE | 2021-08-29 09:07 | RAD ---
HISTORYRespiratory distressSTUDYChest AP [id number]/22/2022FINDINGSThe heart is upper limits normal in size. The raven are normal. Peripheral right basilar infiltrate is very slightly improved considering a difference in film technique. There is subsegmental atelectasis now present in the left lung base. Remainder of the lung bagley are clear. Bony thorax is unremarkable.IMPRESSIONSlight improvement in the peripheral right basilar lung infiltrate being followedSubsegmental atelectasis now present left lung baseElectronically signed by: REBA ORTIZ (Aug 29, 2021 09:05:42)
[2021-08-29 09:33] LABS: ANTI-NUCLEAR ANTIBODY TEST None Detected (None Detected)
[2021-08-29 11:18] VITALS: BP 146/67
[2021-08-30 06:13] LABS: PROTEIN C ACTIVITY 90 % (83-168)
[2021-09-02 06:07] LABS: PROTHROMBIN G20210A Negative
[2021-09-02 08:02] LABS: PTT-D HEPARIN NEUT 54
[2021-09-02 08:11] LABS: THROMBIN TIME >150
[2021-09-02 08:12] LABS: REPTILASE TIME 16.9
[2021-09-04] MEDS ORDERED: ELIQUIS PO SCH (09:00)
== END 2021-08-29 11:18 | disposition home health service (06) | DRG 190 ==
LOC: ER 03:45 → MED/SURG 06:13 → ICU 08-26 12:00
PROVIDERS: ADMIT Internal Medicine; ATTEND Internal Medicine
DX: Z72.0 Tobacco use; I26.99 Other pulmonary embolism without acute cor pulmonale; I50.43 Acute on chronic combined systolic (congestive) and diastolic (congestive) heart failure; R06.02 Shortness of breath; J98.11 Atelectasis; M54.42 Lumbago with sciatica, left side; R07.89 Other chest pain; R94.31 Abnormal electrocardiogram [ECG] [EKG]; J44.0 Chronic obstructive pulmonary disease with (acute) lower respiratory infection; R06.03 Acute respiratory distress; B96.29 Other Escherichia coli [E. coli] as the cause of diseases classified elsewhere; R70.0 Elevated erythrocyte sedimentation rate; M54.41 Lumbago with sciatica, right side; I82.432 Acute embolism and thrombosis of left popliteal vein; J44.1 Chronic obstructive pulmonary disease with (acute) exacerbation; M54.2 Cervicalgia; Z20.822 Contact with and (suspected) exposure to COVID-19